=== PATIENT | female | born 1985 | race Hispanic/Latino ===

== ENCOUNTER 2018-01-08 01:06 | Day surgery (SDC) | payer OTHER ==
[2018-01-08 01:51] VITALS: BP 143/76; TEMP 98.6
[2018-01-08 01:52] VITALS: BMI 28.7
--- NOTE | 2018-01-08 03:38 | PDOC.FPROB ---
FMR OB H&P: HPI - History of Present Illness Chief Complaint: contractions Indentification: History of Present Illness: 33 at 39.2 by LMP c/w 14.2 wk sono here for reported inc. CTX she feels every 7 min-not painful. Denies LOF, VB. Endorses FM. In clinic 2 days ago she was 06/12/high. Primary Care Physician: Dr. Wolfe FMR OB H&P: Current - Care : 3 Para: 2 Gestational age: 39.2 Due date: 01/13/18 Dating Criteria: LMP c/w 14.2 wk sono - OB Labs Blood type: O RH: positive Antibody Screen: negative HIV: negative RPR: unknown (1:1 with reflex to FTA-ABS which was negative) HepBsAg: unknown Rubella: immune Quad screen: negative GBS: positive - Anatomy Survey Anatomy survey: WNL FMR OB H&P: History - Past Medical History PMH: Denies - OB History OB History: 1. 2. Csx for breech - [employer]NA[employer] [facility] History [facility] History: Pap during this : NILM - Surgical History Sx History: CSx 10/18/11 - Social History Social History: Denies tobacco, etoh. drug use - Family History Family History: denies HTN, BP, cardiac deaths <55yo FMR OB H&P: Medications - Current Home Medications: Medication Instructions Recorded Confirmed Type Vits96/Iron Fum/Folic 1 tab PO DAILY 01/08/18 01/08/18 History [ Tablet] Allergies/Adverse Reactions: Allergies Allergy/AdvReac Type Severity Reaction Status Date / Time No Known Allergies Allergy Verified 01/08/18 02:20 FMR OB H&P: ROS - Review of Systems Eyes: denies: eye pain, double vision ENT: denies: nasal congestion, rhinorrhea, sore throat Cardiovascular: denies: chest pain, palpitation Gastrointestinal: denies: abdominal pain, bloating Genitourinary (Female): denies: dysuria, hematuria, vaginal bleeding Musculoskeletal: denies: pain, swelling Integumentary: denies: rash, lesions Hematologic/Lymphatic: denies: prolonged or excessive bleeding Psychological: denies: depression, anxiety FMR OB H&P: Vital Signs - Heart Tones Variability: moderate Acceleration: present Deceleration: absent Category: category 1 [place] contractions every: 5-7min FMR OB H&P: Physical Exam - Physical Exam General: NAD, awake, alert and oriented HEENT: normocephalic and atraumatic, EOMI, MMM Neck: supple, FROM Heart: RRR, normal S1/S2 General: CTAB, no respiratory distress Abdomen: gravid Musculoskeletal: pulses present, FROM in all four extremities Skin: no rash, good tugor, capillary refill <2 seconds Lymphatic: no unusual bruising or bleeding, no purpura Psychiatric: intact recent and remote memory, good judgement and insight - Pelvic Exam Vulva: normal hair distribution, no masses, no lesions, no blood SVE: 2/75/-2 Barba score: 5 FMR OB H&P: A/P - Problem List (1) in multigravida Status: Acute Code(s): Z34.80 - ENCOUNTER FOR SUPRVSN OF NORMAL , UNSP TRIMESTER (2) GBS (group B Streptococcus carrier), +RV culture, currently Status: Acute Code(s): O99.820 - STREPTOCOCCUS B CARRIER STATE COMPLICATING Disposition: 33 yo at 39.2 here for labor rule out 1. sIUP in multigravida -FHT 1 -SVE 275/-2, in office two days ago it was 06/12/high -low voltage, inconsistent contractions every 5-6min -Has follow up appointment with Dr. Byers in two days who will re-check her -Barba: 6 (medium cervical consistency, midposition) -Plan for IOL at 40 depending if cervix is favorable 2. GBS+ -Aware -Plan for PCN ppx during labor Dispo: will send home with labor precuations. f/u with Dr. byers in two days. discussed with dr tavares Discussion: Date/Time: 01/08/18 3128 This H&P was discussed with [] and [] who agree with the above documentation and plan.
== END 2018-01-08 03:40 | disposition home or self-care (01) ==
LOC: L&D/OP 01:06
PROVIDERS: ATTEND Family Medicine
DX: O47.1 False labor at or after 37 completed weeks of gestation (principal); O99.820 Streptococcus B carrier state complicating pregnancy; Z3A.39 39 weeks gestation of pregnancy
CPT/HCPCS: 99283

== ENCOUNTER 2018-01-08 10:49 | Inpatient (IN) | payer MEDICAID, OTHER, SELFPAY ==
[~2018-01-08 10:49] MED LIST: Bupivacaine 0.25% HCL 30 ML VIAL ONE
--- NOTE | 2018-01-08 11:50 | PDOC.LDHP ---
Labor and Delivery H&P Allergies/Adverse Reactions: Allergies Allergy/AdvReac Type Severity Reaction Status Date / Time No Known Allergies Allergy Verified 01/08/18 02:20
--- NOTE | 2018-01-08 11:53 | PDOC.FPROB ---
FMR OB H&P: HPI - History of Present Illness Chief Complaint: contractions History of Present Illness: 33 yo at 39.2 here for continued contractions throughout the night. The patient was in triage last night and returned this morning for continued painful contractions. The patient denies vision changes, fever, increased swelling in legs or loss of fluid. FMR OB H&P: Current - Care : 3 Para: 2 Gestational age: 39.2 Due date: 01/13/2018 Dating Criteria: LMP consistent with 14.2wk sono Course/Complications: GDM - OB Labs Blood type: O RH: positive Antibody Screen: negative HIV: negative RPR: negative HepBsAg: negative Rubella: immune Quad screen: negative Gonorrhea: negative Chlamydia: negative GBS: positive FMR OB H&P: History - Past Medical History PMH: no issues - OB History OB History: 1. 2. CS for breech - Surgical History Sx History: ; no other surgeries FMR OB H&P: Medications - Current Home Medications: Medication Instructions Recorded Confirmed Type Vits96/Iron Fum/Folic 1 tab PO DAILY 01/08/18 01/08/18 History [ Tablet] Allergies/Adverse Reactions: Allergies Allergy/AdvReac Type Severity Reaction Status Date / Time No Known Allergies Allergy Verified 01/08/18 02:20 FMR OB H&P: ROS - Review of Systems General: denies: fever/chills, weight/appetite/sleep changes, night sweats Eyes: denies: eye pain, vision changes, double vision, scotomas, floaters ENT: denies: nasal congestion, rhinorrhea Cardiovascular: denies: chest pain, palpitation, edema Respiratory: denies: cough, congestion, shortness of breath Gastrointestinal: reports: abdominal pain, cramping. denies: indigestion, bloating, nausea, vomiting, diarrhea, constipation Genitourinary (Female): reports: vaginal discharge (mucous plug), contractions ( every 5-7 min). denies: incontinence, dysuria, hematuria, vaginal pain, vaginal bleeding Musculoskeletal: denies: pain, stiffness, tenderness Integumentary: denies: itching, rash Psychological: denies: depression, anxiety FMR OB H&P: Vital Signs - Maternal Vital signs: VS: T: 98.6, HR: 69, RR: 18, BP: 143/76 - Heart Tones Variability: moderate Acceleration: present Category: category 1 [place] contractions every: every 5-7 min FMR OB H&P: Physical Exam - Physical Exam General: NAD, awake, alert and oriented HEENT: normocephalic and atraumatic, PERRLA, EOMI, MMM, grossly normal vision, grossly normal hearing Neck: supple, FROM Chest: non-tender to palpation Heart: RRR, normal S1/S2, no murmurs/rubs/gallops General: CTAB, no respiratory distress, good air movement Abdomen: soft, gravid, non-tender Musculoskeletal: pulses present, FROM in all four extremities Skin: no rash Psychiatric: normal mood and affect FMR OB H&P: A/P - Problem List (1) in multigravida Current Visit: No Status: Acute Code(s): Z34.80 - ENCOUNTER FOR SUPRVSN OF NORMAL , UNSP TRIMESTER (2) GBS (group B Streptococcus carrier), +RV culture, currently Current Visit: No Status: Acute Code(s): O99.820 - STREPTOCOCCUS B CARRIER STATE COMPLICATING Disposition: 33 yo at 39.2 here for increased contractions. 1. sIUP in multigravida - FHT 1 - SVE 90/-1,last night it was 70/-1; in office two days ago it was 06/12/high - low voltage, inconsistent contractions every 5-7min - Has follow up appointment with Dr. Chou in two days who will re-check her - Barba: 6 (medium cervical consistency, midposition) - Plan for IOL at 40 depending if cervix is favorable - Will give IVF and recheck in 2 hours 2. GBS+ - Aware - Plan for PCN ppx during labor Dispo: Will recheck in 2 hours and decide further management at that time Case discussed with Dr. Amaral Discussion: Date/Time: 01/08/18 1151 This H&P was discussed with [] and [] who agree with the above documentation and plan. Attending Addendum - Attending Addendum Date/Time: 01/08/18 1431 I personally evaluated the patient and discussed the management with Dr. Mcduffie I agree with the History, Examination, Assessment and Plan documented above with any addition or exceptions noted below. Patient in early active labor. Appears to be a good candidate for TOLAC with prior 11 years ago and primary section for breech 6 years ago. Discussed TOLAC with patient and FOB - appears to have good understanding and insight. Offered repeat C/S. R/B/A discussed. Will observe for now - expectant management. PCN for + GBS. Requesting pain meds. If EFM remains reassuring, consider AROM.
[2018-01-08] MEDS ORDERED: Lactated Ringer's 1,000 ML IV SCH (12:45)
[2018-01-08] MEDS ORDERED: Lidocaine 1% (PF) 30 ML VIAL SC PRN (13:15)
[2018-01-08] MEDS ORDERED: Misoprostol 200 MCG TAB PR PRN (13:15)
[2018-01-08] MEDS ORDERED: Ondansetron HCl/PF 4 MG/2 ML Vial IVP PRN ×2 (13:15→21:20)
[2018-01-08] MEDS ORDERED: Ibuprofen 800 MG TAB PO PRN (13:15)
[2018-01-08] MEDS ORDERED: Promethazine HCl 25 MG/ML VIAL IM PRN ×2 (13:15→21:20)
[2018-01-08] MEDS ORDERED: Penicillin G Potassium 5 MILL.UNITS in Sodium Chloride 0.9% 100 ML IVPB SCH (13:15)
[2018-01-08] MEDS ORDERED: Penicillin G Potassium 5 MILL.UNITS VIAL ONE (13:22)
[2018-01-08 13:51] LABS: Hemoglobin 14.3 g/dL (12.0-16.0); Mean Corpuscular HGB CONC 36.4 g/dL (32.0-36.0); Mean Corpuscular Hemoglobin 34.3 pg (27.0-31.0); Mean Corpuscular Volume 94.4 fL (78.0-98.0); Mean Platelet Volume 7.3 fL (7.4-10.4); Platelet Count 185 thou/uL (130-400); RBC Distribution Width 12.5 % (11.5-14.5); Red Blood Cell (RBC) Count 4.18 mill/uL (4.20-5.40); White Blood Cell (WBC) Count 16.2 thou/uL (4.8-10.8)
[2018-01-08] MEDS ORDERED: Fentanyl 100 MCG/2 ML VIAL SLOW IVP SCH (14:00)
[2018-01-08] MEDS: Lactated Ringer's 1,000 ML IV SCH ×2 (14:12→17:58)
[2018-01-08] MEDS ORDERED: DISCONTINUE ALL PREVIOUS NARCOTICS FS SCH (14:30)
[2018-01-08 14:31] LABS: HBSAg Index 0.23 S/CO (0-0.99); Hep B Surf Ag Non-Reactive S/CO (NonReactive)
[2018-01-08 14:33] LABS: Syphilis Antibody Nonreactive (Nonreactive); Syphilis Antibody Index 0.08 S/CO (<1.00 Non-Reactive)
[2018-01-08 16:05] VITALS: BMI 27.4
[2018-01-08] MEDS: Bupivacaine 0.5% 20 ML, fentaNYL Citrate/PF 400 MCG in Sodium Chloride 0.9% 72 ML EPIDURAL SCH (16:50)
--- NOTE | 2018-01-08 17:07 | PDOC.LDPN ---
Labor & Delivery Progress Note - Subjective Subjective: comfortable - Objective Vital signs reviewed and normal: yes General: NAD Uterine fundus: non tender Dilation: 7 Effacement: 100% Station: 0 FHT: category 1 [place] contractions every: q3-4 min Procedures: AROM AROM: clear fluid - Assessment (1) GBS (group B Streptococcus carrier), +RV culture, currently Code(s): O99.820 - STREPTOCOCCUS B CARRIER STATE COMPLICATING Current Visit: No Status: Acute (2) in multigravida Code(s): Z34.80 - ENCOUNTER FOR SUPRVSN OF NORMAL , UNSP TRIMESTER Current Visit: No Status: Acute Plan: continue plan of care -: - Pt continuing to make change w/o need for pitocin - Head well engaged and with bulgin bag. AROM performed w/ clear fluid expressed. No pulsatile cord palpated. - Cont. w/ expectant management - Second dose of PCN to be given at 1730 for GBS prophylaxis - Repeat cervical check in 2 hours <Umang Loyola - Last Filed: 01/08/18 17:05> - Assessment (1) in multigravida Code(s): Z34.80 - ENCOUNTER FOR SUPRVSN OF NORMAL , UNSP TRIMESTER Current Visit: No Status: Acute (2) GBS (group B Streptococcus carrier), +RV culture, currently Code(s): O99.820 - STREPTOCOCCUS B CARRIER STATE COMPLICATING Current Visit: No Status: Acute <Brett Amaral - Last Filed: 01/08/18 18:21> Attending Addendum - Attending Addendum Date/Time: 01/08/18 1820 I personally evaluated the patient and discussed the management with Dr. Loyola I agree with the History, Examination, Assessment and Plan documented above with any addition or exceptions noted below. Doing well - [place] TOLAC. Comfortable with epidural. EFM Cat 1, AROM clear. Anticipate . <Brett Amaral - Last Filed: 01/08/18 18:21>
[2018-01-08] MEDS: Penicillin G 2.5 MILL.units 2.5 MILL.UNITS in Premix Bag 1 BAG IVPB SCH ×2 (17:57→22:15)
--- NOTE | 2018-01-08 20:06 | PDOC.LDPN ---
Labor & Delivery Progress Note - Subjective Subjective: comfortable - Objective Vital signs reviewed and normal: yes General: resting Uterine fundus: non tender Dilation: 7 Effacement: 90% Station: -1 FHT: category 1 [place] contractions every: 2-5 minutes IUPC placed: yes - Assessment (1) GBS (group B Streptococcus carrier), +RV culture, currently Code(s): O99.820 - STREPTOCOCCUS B CARRIER STATE COMPLICATING Current Visit: No Status: Acute (2) in multigravida Code(s): Z34.80 - ENCOUNTER FOR SUPRVSN OF NORMAL , UNSP TRIMESTER Current Visit: No Status: Acute Plan: continue plan of care -: 33 yo at 39.2w by LMP/14.2w sono here in labor 1. TIUP in labor, TOLAC - Continue expectant management - IUPC placed, if MVU inadequate will start low dose pitocin - Quad screen neg 2. GBS positive - s/p PCN x2, continue q4 hours 3. Prior c/s for breech 4. s/p Tdap, needs pap pp 5. Glucose intolerance - 1 hour 163 - 3 hour Recheck in 2 hours
--- NOTE | 2018-01-08 20:42 | PDOC.LDPN ---
Labor & Delivery Progress Note - Subjective Subjective: comfortable (0) - Objective Vital signs reviewed and normal: yes General: NAD Uterine fundus: non tender Dilation: 7 Effacement: 90% Station: 0 FHT: category 1 (145/mod variability/early decels, rare variable decels) [place] contractions every: 3-5min AROM: clear fluid IUPC placed: yes - Assessment (1) in multigravida Code(s): Z34.80 - ENCOUNTER FOR SUPRVSN OF NORMAL , UNSP TRIMESTER Current Visit: No Status: Acute (2) GBS (group B Streptococcus carrier), +RV culture, currently Code(s): O99.820 - STREPTOCOCCUS B CARRIER STATE COMPLICATING Current Visit: No Status: Acute Plan: labor augmentation -: 33 yo at 39.2w by LMP/14.2w sono here in labor 1. TIUP in labor, TOLAC - Start Labor augmentation with low dose pitocin - IUPC placed, mVus currently 95, goal is 200 - Quad screen neg 2. GBS positive - s/p PCN x2, continue q4 hours 3. Prior c/s for breech 4. s/p Tdap, needs pap pp 5. A1 GDM - q2hr accuchecks - most recent was 111 Recheck in 2 hours
[2018-01-08] MEDS ORDERED: NS w/ Oxytocin 10 units 500 ML ONE (20:46)
[2018-01-08] MEDS ORDERED: diphenhydrAMINE 50 MG/ML VIAL IVP PRN (21:20)
[2018-01-08] MEDS ORDERED: Naloxone HCl 0.4 mg/ml Vial IVP PRN ×2 (21:20)
[2018-01-08] MEDS ORDERED: ePHEDrine/0.9% NaCl/PF SYRINGE 50 mg/10 ml SLOW IVP PRN (21:20)
[2018-01-08] MEDS ORDERED: Eucerin (Mineral Oil/Petrolatum,White) 30 gm Jar TOP PRN (21:20)
[2018-01-08] MEDS ORDERED: Acetaminophen 325 MG TAB PO PRN (21:20)
[2018-01-08] MEDS ORDERED: Lactated Ringer's 500 ML IV PRN (21:20)
[2018-01-08] MEDS ORDERED: Communication Order-Pharmacy FS SCH (21:30)
[2018-01-08] MEDS ORDERED: fentaNYL Citrate/PF 400 MCG, Bupivacaine 0.5% 20 ML in Sodium Chloride 0.9% 72 ML EPIDURAL SCH (21:30)
[2018-01-08] MEDS ORDERED: NS w/ Pitocin 40 units/1000 ML BAG IV SCH (22:00)
--- NOTE | 2018-01-08 22:51 | PDOC.LDPN ---
Labor & Delivery Progress Note - Subjective Subjective: comfortable - Objective Vital signs reviewed and normal: yes General: NAD Uterine fundus: non tender Dilation: 8 Effacement: 90% Station: 0 FHT: category 1 (150/moderate/early decels/intermittent variable decels) [place] contractions every: 2-5min AROM: clear fluid - Assessment (1) in multigravida Code(s): Z34.80 - ENCOUNTER FOR SUPRVSN OF NORMAL , UNSP TRIMESTER Current Visit: No Status: Acute (2) GBS (group B Streptococcus carrier), +RV culture, currently Code(s): O99.820 - STREPTOCOCCUS B CARRIER STATE COMPLICATING Current Visit: No Status: Acute Plan: pitocin for augmentation -: 33 yo at 39.2w by LMP/14.2w sono here in labor 1. TIUP in labor, TOLAC - Continue Labor augmentation with low dose pitocin, pit currently at 3 - IUPC placed, mVus currently 200 - Quad screen neg 2. GBS positive - s/p PCN x2, continue q4 hours 3. Prior c/s for breech 4. s/p Tdap, needs pap pp 5. A1 GDM - q2hr accuchecks - most recent was 113 Recheck in 2 hours
--- NOTE | 2018-01-09 00:51 | PDOC.LDPN ---
Labor & Delivery Progress Note - Subjective Subjective: comfortable - Objective Vital signs reviewed and normal: yes General: resting Uterine fundus: non tender Dilation: 100 Effacement: 100% Station: 0 FHT: category 1 (140/mod/no accel/early decel) [place] contractions every: 2-3 min - Assessment (1) GBS (group B Streptococcus carrier), +RV culture, currently Code(s): O99.820 - STREPTOCOCCUS B CARRIER STATE COMPLICATING Current Visit: No Status: Acute (2) in multigravida Code(s): Z34.80 - ENCOUNTER FOR SUPRVSN OF NORMAL , UNSP TRIMESTER Current Visit: No Status: Acute Plan: continue plan of care, pitocin for augmentation -: 33 yo at 39.3w by LMP/14.2w sono here in labor 1. TIUP in labor, TOLAC - Continue Labor augmentation with low dose pitocin, pit currently at 5 - Complete at 1230 - Will allow to labor down and recheck in 1 hour or sooner if indicated 2. GBS positive - s/p PCN x >2 doses, continue q4 hours 3. Prior c/s for breech 4. s/p Tdap, needs pap pp 5. A1 GDM - q2hr accuchecks - most recent was 100 Continue current management.
[2018-01-09] MEDS: Bupivacaine 0.5% 20 ML, fentaNYL Citrate/PF 400 MCG in Sodium Chloride 0.9% 72 ML EPIDURAL SCH (01:36)
[2018-01-09] MEDS: Penicillin G 2.5 MILL.units 2.5 MILL.UNITS in Premix Bag 1 BAG IVPB SCH ×5 (01:52→16:59)
--- NOTE | 2018-01-09 03:20 | PDOC.OPDEL ---
OB Operative/Delivery Note Delivery Dr/Surgeon: Marina Velásquez MD Supervising Resident: Aniya Srinivasan MD Assist: Attending: Brett Wong MD Pre-Delivery Diagnosis: active labor Procedure/Post Delivery Dx: vaginal delivery after CS Weeks gestation: 39 (39.3) Anesthesia: epidural - Findings A Sex: male - 1 min: 9 - 5 min: 9 - Additional Findings/Plan Placenta delivered: spontaneous Repaired Obstetrical Laceration: none Post delivery plan: routine recovery
[2018-01-09] MEDS ORDERED: Adacel (T-DAP) 0.5 ML VIAL IM ONE (03:23)
[2018-01-09] MEDS ORDERED: Bisacodyl 10 MG SUPP PR PRN (03:23)
[2018-01-09] MEDS ORDERED: Benzocaine/Menthol 20-0.5% 60 ML CAN TOP PRN (03:23)
[2018-01-09] MEDS ORDERED: Lanolin Ointment 7 GM TUBE TOP PRN (03:23)
[2018-01-09] MEDS ORDERED: Milk Of Magnesia 30 ML UDCUP PO PRN (03:23)
[2018-01-09] MEDS: NS / Oxytocin 40 units/1000ml 1,000 ML IV PRN ×2 (03:24→05:49)
[2018-01-09] MEDS: Ibuprofen 800 MG TAB PO SCH ×3 (05:48→21:23)
[2018-01-09] MEDS: Lactated Ringer's 1,000 ML IV SCH ×2 (06:31→16:59)
--- NOTE | 2018-01-09 07:57 | DN-2 ---
SUPERVISING PHYSICIAN: Dr. Aniya Srinivasan ATTENDING PHYSICIAN: Brett Wong M.D. PROCEDURE: Spontaneous vaginal delivery. ANESTHESIA: Epidural. ESTIMATED BLOOD LOSS: 173 mL. PREOPERATIVE DIAGNOSES: 1. Term intrauterine in labor. 2. History of for breech. 3. GBS positive, treated with 3 doses of penicillin. 4. A1 GDM. INDICATIONS: A 33-year-old female G3, P2-0-0-2 at 39 and 3 weeks who delivered a viable male infant at 0244 on 01/09/2018. Following an uneventful antepartum course, a vigorous male was delivered over an intact perineum in the right occiput anterior position. Anterior shoulder and then remainder of the body delivered. No nuchal cord. The head was held down and mouth and nares were bulb suctioned. Cord clamped after delayed cord clamping and cut and cord blood collected. Placenta delivered inta ct in the [place] presentation with a 3-vessel cord noted. Fundal massage was performed and the fund us was firm. The cervix and vagina were inspected and found to be free of lacerations. The w ent to nursery in good condition for routine care. Apgars were 9 and 9 at 1 and 5 minutes, r espectively. The patient tolerated delivery well and went to after routine recovery care.
--- NOTE | 2018-01-09 08:29 | PDOC.PP ---
Post Progress Note Post Day #: 1 Subjective: This is a [id number] who delivered a TAGA male by at 0244 on 01/09/18. She is doing well this morning and has no complaints or concerns. She stated she has mild cramping but relieved with motrin. She was able to ambulate some. She denies SOB, chest pain, subjective fever, changes in vision or headache. PO intake tolerated: yes Flatus: yes Ambulation: yes Vital Signs (12 hours) Temp Pulse Resp BP BP 01/09/18 08:09 98.2 F 79 20 103/59 L 01/09/18 05:45 97.9 F 80 16 109/62 01/09/18 00:00 98.5 F 90 18 135/63 Weight Weight 72.575 kg - Physical Examination General: NAD Cardiovascular: no m/r/g, RRR Respiratory: clear to auscultation bilaterally, non-labored breathing Abdominal: + bowel sounds Psychiatric: A&Ox3, normal affect Result Diagrams: 01/08/18 13:40 Additional Labs: Post Labs Blood Type O POSITIVE 01/08/18 13:40 Hep Bs Antigen Non-Reactive S/CO (NonReactive) 01/08/18 13:40 (1) in multigravida Code(s): Z34.80 - ENCOUNTER FOR SUPRVSN OF NORMAL , UNSP TRIMESTER Status: Acute (2) GBS (group B Streptococcus carrier), +RV culture, currently Code(s): O99.820 - STREPTOCOCCUS B CARRIER STATE COMPLICATING Status : Acute - Assessment/Plan 33 yo G3noP3 who delivered viable TAGA M at 0244 on 01/09/18 by . NO lacerations. QBL 172. TIUP, TOLAC, delivered - pt doing well, no complaints or concerns - Will monitor VS - encourage ambulation and will monitor I/Os - Will f/u with AM H&H GBS positive - adequately treated - will monitor vitals Prior c/s for breech s/p Tdap, needs pap pp A1 GDM - q2hr accuchecks - most recent was 100 Continue to monitor normal post care. Case discussed with Dr. Amaral <Fiona Mcduffie - Last Filed: 01/09/18 09:21> Vital Signs (12 hours) Temp Pulse Resp BP 01/09/18 11:31 97.7 F 87 20 108/61 01/09/18 08:09 98.2 F 79 20 103/59 L 01/09/18 07:45 98.2 F 79 20 01/09/18 05:45 97.9 F 80 16 109/62 Weight Weight 72.575 kg Result Diagrams: 01/08/18 13:40 Additional Labs: Post Labs Blood Type O POSITIVE 01/08/18 13:40 Hep Bs Antigen Non-Reactive S/CO (NonReactive) 01/08/18 13:40 (1) in multigravida Code(s): Z34.80 - ENCOUNTER FOR SUPRVSN OF NORMAL , UNSP TRIMESTER Status: Acute (2) GBS (group B Streptococcus carrier), +RV culture, currently Code(s): O99.820 - STREPTOCOCCUS B CARRIER STATE COMPLICATING Status : Acute <Brett Amaral - Last Filed: 01/09/18 13:25> Attending Addendum - Attending Addendum Date/Time: 01/09/18 1325 I personally evaluated the patient and discussed the management with Dr. Mcduffie I agree with the History, Examination, Assessment and Plan documented above with any addition or exceptions noted below. <Brett Amaral - Last Filed: 01/09/18 13:25>
[2018-01-09] MEDS: Prenatal Vitamin 1 TAB PO SCH (09:19)
[2018-01-09] MEDS: Docusate Calcium (SURFAK) 240 MG CAP PO SCH ×2 (09:19→21:23)
--- NOTE | 2018-01-10 05:45 | PDOC.PP ---
Post Progress Note Post Day #: 2 Subjective: No events overnight. Patient states she is feeling well. She has been ambulating and tolerating PO. She has been voiding and is passing gas from below. She has been successfully . She endorses she is ready to go home. She denies headache, fever, changes in vision, lower extremity swelling or SOB. PO intake tolerated: yes Flatus: yes Ambulation: yes Vital Signs (12 hours) Temp Pulse Resp BP BP 01/10/18 05:11 98.2 F 95 18 110/65 01/10/18 04:00 97.6 F 90 20 01/10/18 00:00 97.6 F 90 20 01/09/18 20:15 98 F 95 18 101/69 01/09/18 20:00 97.6 F 90 20 Weight Weight 72.575 kg - Physical Examination General: NAD Cardiovascular: no m/r/g, RRR Respiratory: clear to auscultation bilaterally, non-labored breathing Abdominal: + bowel sounds Psychiatric: A&Ox3 Result Diagrams: 01/10/18 06:09 Additional Labs: Post Labs Blood Type O POSITIVE 01/08/18 13:40 Hep Bs Antigen Non-Reactive S/CO (NonReactive) 01/08/18 13:40 (1) in multigravida Code(s): Z34.80 - ENCOUNTER FOR SUPRVSN OF NORMAL , UNSP TRIMESTER Status: Acute (2) GBS (group B Streptococcus carrier), +RV culture, currently Code(s): O99.820 - STREPTOCOCCUS B CARRIER STATE COMPLICATING Status : Acute - Assessment/Plan 33 yo G3noP3 who delivered viable DIALLO Gaytan at 0244 on 01/09/18 by . NO lacerations. QBL 172. Doing well and ready for discharge today. TIUP, TOLAC, delivered - pt doing well, no complaints or concerns - Will monitor VS - encourage ambulation and will monitor I/Os - AM H&H was 10.6 indicated good recovery - Patient is doing well and is ready for discharge today GBS positive - adequately treated - will monitor vitals Prior c/s for breech s/p Tdap, needs pap pp A1 GDM - q2hr accuchecks - most recent was 100 DISPO: discharge today Case discussed with Dr. Amaral <Fiona Mcduffie - Last Filed: 01/10/18 13:38> Vital Signs (12 hours) Temp Pulse Resp BP 01/10/18 07:35 98.0 F 77 20 01/10/18 07:34 98.0 F 77 20 128/76 01/10/18 05:11 98.2 F 95 18 110/65 01/10/18 04:00 97.6 F 90 20 Weight Weight 72.575 kg Result Diagrams: 01/10/18 06:09 Additional Labs: Post Labs Blood Type O POSITIVE 01/08/18 13:40 Hep Bs Antigen Non-Reactive S/CO (NonReactive) 01/08/18 13:40 (1) in multigravida Code(s): Z34.80 - ENCOUNTER FOR SUPRVSN OF NORMAL , UNSP TRIMESTER Status: Acute (2) GBS (group B Streptococcus carrier), +RV culture, currently Code(s): O99.820 - STREPTOCOCCUS B CARRIER STATE COMPLICATING Status : Acute <Brett Amaral - Last Filed: 01/10/18 15:39> Attending Addendum - Attending Addendum Date/Time: 01/10/18 1539 I personally evaluated the patient and discussed the management with Dr. Mcduffie I agree with the History, Examination, Assessment and Plan documented above with any addition or exceptions noted below. <Brett Amaral - Last Filed: 01/10/18 15:39>
[2018-01-10] MEDS: Ibuprofen 800 MG TAB PO SCH ×3 (06:31→21:44)
[2018-01-10 07:11] LABS: Hemoglobin 10.1 g/dL (12.0-16.0); Mean Corpuscular HGB CONC 35.3 g/dL (32.0-36.0); Mean Corpuscular Hemoglobin 34.3 pg (27.0-31.0); Mean Platelet Volume 7.1 fL (7.4-10.4); Platelet Count 142 thou/uL (130-400); RBC Distribution Width 12.7 % (11.5-14.5); Red Blood Cell (RBC) Count 2.95 mill/uL (4.20-5.40); White Blood Cell (WBC) Count 12.7 thou/uL (4.8-10.8)
[2018-01-10] MEDS: Docusate Calcium (SURFAK) 240 MG CAP PO SCH ×2 (08:44→21:44)
[2018-01-10] MEDS: Prenatal Vitamin 1 TAB PO SCH (08:44)
[2018-01-10] MEDS: Lactated Ringer's 1,000 ML IV SCH (08:45)
[2018-01-10] MEDS: Penicillin G 2.5 MILL.units 2.5 MILL.UNITS in Premix Bag 1 BAG IVPB SCH (08:45)
--- NOTE | 2018-01-11 05:54 | PDOC.PP ---
Post Progress Note Post Day #: 2 Subjective: No events overnight. Patient is doing well. Tolerating PO, ambulating, voiding and passing gas. No BM yet, on bowel regimen. No fever, SOB, chest pain, headache, floaters, or NVD. PO intake tolerated: yes Flatus: yes Ambulation: yes Vital Signs (12 hours) Temp Pulse Resp BP 01/10/18 20:00 98.3 F 80 20 115/60 Weight Weight 72.575 kg - Physical Examination General: NAD Cardiovascular: no m/r/g, RRR Respiratory: clear to auscultation bilaterally, non-labored breathing Abdominal: + bowel sounds Neurological: no gross focal deficits Psychiatric: A&Ox3, normal affect Result Diagrams: 01/10/18 06:09 Additional Labs: Post Labs Blood Type O POSITIVE 01/08/18 13:40 Hep Bs Antigen Non-Reactive S/CO (NonReactive) 01/08/18 13:40 (1) in multigravida Code(s): Z34.80 - ENCOUNTER FOR SUPRVSN OF NORMAL , UNSP TRIMESTER Status: Acute (2) GBS (group B Streptococcus carrier), +RV culture, currently Code(s): O99.820 - STREPTOCOCCUS B CARRIER STATE COMPLICATING Status : Acute - Assessment/Plan 33 yo G3noP3 who delivered viable DIALLO [place] at 0244 on 01/09/18 by . NO lacerations. QBL 172. Doing well and ready for discharge today. TIUP, TOLAC, delivered - pt doing well, no complaints or concerns - monitoring VS - encourage ambulation and will monitor I/Os; passing flatus and voiding well - Patient is doing well and is ready for discharge today GBS positive - adequately treated - will monitor vitals Prior c/s for breech s/p Tdap, needs pap pp A1 GDM - q2hr accuchecks - most recent was 100 DISPO: discharge today Case discussed with Dr. Amaral <Fiona Mcduffie - Last Filed: 01/11/18 08:09> Vital Signs (12 hours) Temp Pulse Resp BP 01/11/18 08:19 97.6 F 70 20 108/65 01/11/18 07:51 98.3 F 80 20 Weight Weight 72.575 kg Result Diagrams: 01/10/18 06:09 Additional Labs: Post Labs Blood Type O POSITIVE 01/08/18 13:40 Hep Bs Antigen Non-Reactive S/CO (NonReactive) 01/08/18 13:40 (1) in multigravida Code(s): Z34.80 - ENCOUNTER FOR SUPRVSN OF NORMAL , UNSP TRIMESTER Status: Acute (2) GBS (group B Streptococcus carrier), +RV culture, currently Code(s): O99.820 - STREPTOCOCCUS B CARRIER STATE COMPLICATING Status : Acute <Brett Amaral - Last Filed: 01/11/18 16:31> Attending Addendum - Attending Addendum Date/Time: 01/11/18 1630 I personally evaluated the patient and discussed the management with Dr. Mcduffie I agree with the History, Examination, Assessment and Plan documented above with any addition or exceptions noted below. <Brett Amaral - Last Filed: 01/11/18 16:31>
[2018-01-11] MEDS: Ibuprofen 800 MG TAB PO SCH (06:26)
[2018-01-11] MEDS: Penicillin G 2.5 MILL.units 2.5 MILL.UNITS in Premix Bag 1 BAG IVPB SCH ×6 (07:40→13:14)
[2018-01-11] MEDS: Lactated Ringer's 1,000 ML IV SCH ×4 (07:51→12:52)
[2018-01-11 08:19] VITALS: BP 108/65; TEMP 97.6
[2018-01-11] MEDS: Prenatal Vitamin 1 TAB PO SCH (09:26)
[2018-01-11] MEDS: Docusate Calcium (SURFAK) 240 MG CAP PO SCH (09:27)
== END 2018-01-11 12:45 | disposition home or self-care (01) | DRG 775 ==
LOC: L&D/OP 10:49 → L&D 13:22 → 3SW 01-09 05:27
PROC: 10E0XZZ Delivery of Products of Conception, External Approach (ICD-10-PCS; principal; 2018-01-09)
PROC: 10H07YZ Insertion of Other Device into Products of Conception, Via Natural or Artificial Opening (ICD-10-PCS; 2018-01-09)
PROC: 4A1H7CZ Monitoring of Products of Conception, Cardiac Rate, Via Natural or Artificial Opening (ICD-10-PCS; 2018-01-09)
DX: O24.420 Gestational diabetes mellitus in childbirth, diet controlled (principal); O99.824 Streptococcus B carrier state complicating childbirth; O34.219 Maternal care for unspecified type scar from previous cesarean delivery; O76 Abnormality in fetal heart rate and rhythm complicating labor and delivery; Z3A.39 39 weeks gestation of pregnancy; Z37.0 Single live birth
CPT/HCPCS: 36415; 36416; 51702; 85027; 86780; 86850; 86900; 86901; 86922; 87340; 99283; 99285; J2540; J3010; J3490; J7050; S0020

== ENCOUNTER 2019-11-14 11:35 | Emergency (ER) | payer OTHER ==
[2019-11-15 13:13] LABS: SARS-CoV-2 MS2 Positive; SARS-CoV-2 N Gene Negative; SARS-CoV-2 S Gene Negative; SARS-CoV-2 orf1ab Negative
== END 2019-11-14 12:33 | disposition home or self-care (01) ==
LOC: ERS 11:35
DX: R09.81 Nasal congestion (principal); R09.89 Other specified symptoms and signs involving the circulatory and respiratory systems; Z20.828 Contact with and (suspected) exposure to other viral communicable diseases
CPT/HCPCS: 87635; 99283; U0003

== ENCOUNTER 2020-06-16 21:50 | Emergency (ER) | payer OTHER ==
[2020-06-16 22:53] LABS: #Eosinphils 0.1 thou/uL (0.0-0.7); #Monocytes 0.6 thou/uL (0.11-0.59); #Neutrophils 3.9 thou/uL (1.40-6.50); %Basophils 0.5 % (0.0-1.0); %Eosinophils 1.8 % (0.0-10.0); %Lymphocytes 30.1 % (21.0-51.0); %Monocytes 8.6 % (0.0-10.0); Hemoglobin 13.8 g/dL (12.0-16.0); Mean Corpuscular HGB CONC 34.5 g/dL (32.0-36.0); Mean Corpuscular Hemoglobin 30.9 pg (27.0-31.0); Mean Corpuscular Volume 89.5 fL (78.0-98.0); Mean Platelet Volume 7.5 fL (7.4-10.4); Platelet Count 169 thou/uL (130-400); RBC Distribution Width 11.6 % (11.5-14.5); Red Blood Cell (RBC) Count 4.46 mill/uL (4.20-5.40); White Blood Cell (WBC) Count 6.6 thou/uL (4.8-10.8)
[2020-06-16 23:16] LABS: ALT (SGPT) 18 U/L (8-55); AST (SGOT) 17 U/L (5-34); Albumin 4.6 g/dL (3.5-5.0); Alkaline Phosphatase 84 U/L (40-110); Anion Gap 15 mmol/L (10-20); BUN (Urea Nitrogen) 9 mg/dL (7.0-18.7); Bilirubin, Total 0.4 mg/dL (0.2-1.2); CK (CPK) 63 U/L (29-168); Calc. Creatinine Clearance 0 mL/min (70-130); Calcium 8.9 mg/dL (7.8-10.44); Carbon Dioxide 24 mmol/L (22-29); Chloride 106 mmol/L (98-107); Globulin 2.8 g/dL (2.4-3.5); Glucose 109 mg/dL (70-105); Potassium 3.6 mmol/L (3.5-5.1); Protein, Total 7.4 g/dL (6.0-8.3); Sodium 141 mmol/L (136-145)
[2020-06-17] MEDS ORDERED: Acetaminophen 500 MG TAB ONE (00:33)
[2020-06-17] MEDS ORDERED: Ondansetron ODT 4 MG TAB ONE (00:33)
--- NOTE | 2020-06-19 21:19 | EKG ---
Test Reason : Blood Pressure : / mmHG Vent. Rate : 083 BPM Atrial Rate : 083 BPM P-R Int : 120 ms QRS Dur : 064 ms QT Int : 394 ms P-R-T Axes : 076 076 040 degrees QTc Int : 462 ms Normal sinus rhythm with sinus arrhythmia Normal ECG Confirmed by CORINA HONEYCUTT ([id number]), story editor VIOLETA BERGER ([id number]) on 06/19/2020 9:19:23 PM Referred By: Confirmed By:CORINA HONEYCUTT
== END 2020-06-17 00:30 | disposition home or self-care (01) ==
LOC: ERS 21:50
DX: R51.9 Headache, unspecified (principal); R11.0 Nausea
CPT/HCPCS: 36415; 80053; 82550; 84484; 85025; 93005; Q0162